=== PATIENT | female | born 1990 | race Caucasian/White ===

== ENCOUNTER 2017-03-04 16:06 | Inpatient (IN) | payer OTHER ==
[~2017-03-04] VITALS: Ht 154.9 cm; Wt 68.5 kg
[2017-03-17] MEDS ORDERED: PREN1TAB80 PO (11:35)
[2017-03-17 11:53] VITALS: BP 111/63
[2017-03-17] MEDS ORDERED: RINGERS SOLUTION,LACTATED 1,000 ML IV PRN (12:44)
[2017-03-17] MEDS ORDERED: RINGERS SOLUTION,LACTATED 1,000 ML IV SCH (12:44)
[2017-03-17] MEDS ORDERED: OXYTOCIN 30 UNITS/LACT RINGERS 500 ML IV ONE (12:44)
[2017-03-17] MEDS ORDERED: FentaNYL CITRATE-PF 100 MCG/2 ML VIAL IVP PRN (12:45)
[2017-03-17] MEDS ORDERED: METOCLOPRAMIDE HCL 5 MG/ML 2 ML VIAL IVP PRN (12:45)
[2017-03-17] MEDS ORDERED: LIDOCAINE HCL/PF 1% 30 ML VIAL INJ PRN (12:45)
[2017-03-17] MEDS ORDERED: CITRIC ACID/SODIUM CITRATE 30 ML SOLUTION UDCUP PO PRN (12:45)
[2017-03-17 13:12] LABS: BASOPHILS % (AUTO) 0.3 % (0.0-2.0); EOSINOPHILS % (AUTO) 0.8 % (1.0-6.0); HEMATOCRIT 32.9 % (36-46); HEMOGLOBIN 10.9 g/dL (12.0-16.0); LYMPHOCYTES # (AUTO) 1.6 K/uL (1.0-4.8); LYMPHOCYTES % (AUTO) 25.1 % (22.0-44.0); MEAN CORPUSCULAR HEMOGLOBIN 30.6 pg (26.0-34.0); MEAN CORPUSCULAR HGB CONC 33.2 G/dL (31.0-37.0); MEAN CORPUSCULAR VOLUME 92 fL (80-100); MONOCYTES # (AUTO) 0.6 K/uL (0.1-1.0); MONOCYTES % (AUTO) 8.9 % (2.0-9.0); NEUTROPHILS % (AUTO) 64.9 % (40.0-70.0); RED BLOOD CELL COUNT(AUTO) 3.56 MIL/uL (4.00-5.20); RED CELL DISTRIBUTION WIDTH 13.5 % (11.5-14.5); WHITE BLOOD COUNT (AUTO) 6.2 K/uL (4.5-11.0)
[2017-03-17] MEDS ORDERED: FentaNYL/BUPIV 0.125%/NS/PF 200 ML ED ONE (14:11)
[2017-03-17] MEDS ORDERED: FentaNYL/BUPIV 0.125%/NS/PF 200 ML ED PRN (14:47)
[2017-03-17] MEDS ORDERED: DiphenhydrAMINE HCL 50 MG/ML VIAL IVP PRN (15:00)
[2017-03-17] MEDS ORDERED: NALBUPHINE HCL 10 MG/ML VIAL IVP PRN ×2 (15:00)
[2017-03-17] MEDS ORDERED: ONDANSETRON HCL 4 MG/2 ML VIAL IVP PRN (15:00)
[2017-03-17] MEDS ORDERED: OXYGEN THERAPY IH SCH (20:00)
[2017-03-18] MEDS ORDERED: OXYTOCIN 20 UNITS in RINGERS SOLUTION,LACTATED 1,000 ML IV ONE (01:00)
[2017-03-18] MEDS ORDERED: FentaNYL/BUPIV 0.125%/NS/PF 200 ML ED ONE (01:59)
[2017-03-18] MEDS ORDERED: LIDOCAINE HCL/PF 2% 5 ML VIAL ONE (03:10)
[2017-03-18] MEDS ORDERED: BUPIVACAINE HCL/PF 0.5% 10 ML VIAL ONE (03:10)
[2017-03-18] MEDS ORDERED: SENNA/DOCUSATE SODIUM 187-50 MG TABLET PO PRN (04:30)
[2017-03-18] MEDS ORDERED: LANOLIN 7 GM OINTMENT TP PRN (04:30)
[2017-03-18] MEDS ORDERED: BENZOCAINE 20%/MENTHOL 56 GM SPRAY CANISTER TP PRN (04:30)
[2017-03-18] MEDS ORDERED: ACETAMINOPHEN/CODEINE 300-30 MG TABLET PO PRN (04:30)
[2017-03-18] MEDS: GLYCERIN/WITCH HAZEL LEAF 40 PADS JAR TP PRN ×2 (06:16→22:13)
[2017-03-18] MEDS: IBUPROFEN 600 MG TABLET PO PRN ×3 (06:16→22:14)
[2017-03-18] MEDS: MAGNESIUM HYDROXIDE SUSPENSION 30 ML UDCUP PO PRN ×2 (10:38→22:13)
[2017-03-19] MEDS: IBUPROFEN 600 MG TABLET PO PRN (08:06)
[2017-03-19] MEDS ORDERED: IBUP-1547 PO (10:29)
[2017-03-19] MEDS ORDERED: DSS100 PO (10:31)
== END 2017-03-19 12:35 | disposition home or self-care (01) | DRG 775 ==
LOC: 4S 03-17 11:30 → OBSVTOIN 03-17 11:30
PROVIDERS: ADMIT Obstetrics & Gynecology; ATTEND Obstetrics & Gynecology
PROC: 10D07Z6 Extraction of Products of Conception, Vacuum, Via Natural or Artificial Opening (ICD-10-PCS; principal; 2017-03-18)
PROC: 0KQM0ZZ Repair Perineum Muscle, Open Approach (ICD-10-PCS; 2017-03-18)
PROC: 3E0S3CZ (ICD-10-PCS; 2017-03-18)
PROC: 00HU33Z Insertion of Infusion Device into Spinal Canal, Percutaneous Approach (ICD-10-PCS; 2017-03-18)
DX: O69.81X0 Labor and delivery complicated by cord around neck, without compression, not applicable or unspecified (principal); O70.1 Second degree perineal laceration during delivery; Z3A.40 40 weeks gestation of pregnancy; Z37.0 Single live birth; O76 Abnormality in fetal heart rate and rhythm complicating labor and delivery
CPT/HCPCS: 86850; 86900; 86901; J2405; J2590; J3490; J7120

== ENCOUNTER 2019-07-19 16:50 | Observation (INO) | payer SELFPAY ==
[~2019-07-19] VITALS: Ht 154 cm; Wt 70.8 kg
[~2019-07-19 16:50] MED LIST: DSS100 PO; IBUP-2071 PO; PREN1TAB80 PO
[2019-07-19] MEDS ORDERED: PREN-217 PO (17:41)
[2019-07-19] MEDS ORDERED: FERR-89 PO (17:42)
[2019-07-19 17:43] VITALS: BP 109/61
== END 2019-07-19 19:40 | disposition home or self-care (01) ==
LOC: 4S 16:50
PROVIDERS: ADMIT Obstetrics & Gynecology Gynecology; ATTEND Obstetrics & Gynecology Gynecology
DX: O36.8130 Decreased fetal movements, third trimester, not applicable or unspecified (principal); O48.0 Post-term pregnancy; Z3A.40 40 weeks gestation of pregnancy
CPT/HCPCS: 76805; G0378